=== PATIENT | male | born 1985 | race Caucasian/White ===

== ENCOUNTER 2017-07-26 19:04 | Emergency (ER) | payer OTHER ==
[~2017-07-26] VITALS: Ht 6458.1 cm; Wt 134.0 kg
[~2017-07-26 19:04] MED LIST: CYCL-394 PO; NORCO10T PO; SIN10C PO; ZOLP5TAB8 PO
[2017-07-26] MEDS ORDERED: ibuprofen 200mg tablet PO ONE (19:20)
[2017-07-26] MEDS ORDERED: IBUP-1984 PO (20:01)
[2017-07-26] MEDS ORDERED: TAM75C PO (20:01)
[2017-07-26 20:23] VITALS: BP 134/93
== END 2017-07-26 20:26 | disposition home or self-care (01) ==
LOC: ER 19:05
DX: R51 Headache (principal); R50.9 Fever, unspecified; M79.1 Myalgia; Z79.899 Other long term (current) drug therapy; Z98.890 Other specified postprocedural states
CPT/HCPCS: 99283

== ENCOUNTER 2019-04-15 12:58 | Day surgery (SDC) | payer OTHER ==
[2019-04-10 13:44] LABS: BASOPHILS % (AUTO) 0.4 % (0-1); EOSINOPHILS # (AUTO) 0.1 X10'3 (0-0.9); LYMPHOCYTES # (AUTO) 2.2 X10'3 (1.1-4.8); LYMPHOCYTES % (AUTO) 42.4 % (21-51); MEAN CORPUSCULAR HEMOGLOBIN 31.2 PG (27.0-31.0); MEAN CORPUSCULAR HGB CONC 34.1 g/dL (33.0-36.5); MEAN CORPUSCULAR VOLUME 91.4 FL (78-98); MEAN PLATELET VOLUME 8.7 FL (7.4-10.4); MONOCYTES # (AUTO) 0.4 X10'3 (0-0.9); MONOCYTES % (AUTO) 7.4 % (2-12); NEUTROPHILS # (AUTO) 2.5 X10'3 (1.8-7.7); NEUTROPHILS % (AUTO) 48.8 % (42-75); PRE OP HEMATOCRIT 43.1 % (42.0-52.0); PRE OP HEMOGLOBIN 14.7 g/dL (14.0-17.9); PRE OP PLATELET COUNT 178 X10'3 (140-440); RED BLOOD COUNT 4.72 X10'6 (4.70-6.10); RED CELL DISTRIBUTION WIDTH 12.9 % (11.5-14.5)
[2019-04-10 13:56] LABS: PRE OP PROTIME 10.2 SECONDS (9.0-12.0)
[2019-04-10 13:58] LABS: ALBUMIN/GLOBULIN RATIO 1.1 (1.1-1.5); ALKALINE PHOSPHATASE 65 IU/L (46-116); BLOOD UREA NITROGEN 11 MG/DL (7-18); BUN/CREATININE RATIO 9.9 (5.4-32.0); CALCIUM 8.9 MG/DL (8.5-10.1); CHLORIDE 104 MMOL/L (99-107); CREATININE 1.11 MG/DL (0.60-1.10); PRE OP ALT 38 U/L (30-65); PRE OP ANION GAP 6 (8-16); PRE OP AST 23 U/L (10-37); PRE OP BILIRUB, TOTAL 0.7 MG/DL (0.0-1.0); PRE OP GLUCOSE 89 MG/DL (70-104); PRE OP POTASSIUM 4.1 MMOL/L (3.4-5.1); PRE OP SODIUM 143 MMOL/L (135-145); TOTAL CARBON DIOXIDE 33.4 MMOL/L (24-32); TOTAL PROTEIN 7.7 G/DL (6.4-8.2); eGFR 75 ML/MIN
[2019-04-15] VITALS (8 sets, daily range): BP systolic 101–175; BP diastolic 60–97
[~2019-04-15] VITALS: Ht 193 cm; Wt 129.0 kg
[~2019-04-15 12:58] MED LIST changes: -CYCL-394 PO; -SIN10C PO; -ZOLP5TAB8 PO
[2019-04-15] MEDS ORDERED: ceFAZolin 1GM/D5W- ADD-VANTAGE 50 ML IV ONE (14:30)
[2019-04-15] MEDS ORDERED: vancomycin inj 1,500 MG in normal saline 300ml IV soln IV ONE (14:30)
[2019-04-15] MEDS ORDERED: famotidine 20mg tablet PO ONE (14:30)
[2019-04-15] MEDS ORDERED: cefazolin/dext.iso 2gm/50ml 50 ML IV ONE (14:30)
[2019-04-15] MEDS ORDERED: ringers solution, lacted 1,000 ML IV SCH ×2 (14:30→17:39)
[2019-04-15] MEDS ORDERED: sevoflurane 250ml liquid IH ONE (16:02)
[2019-04-15] MEDS ORDERED: dexamethasone sod phosphate 10mg/ml inj ONE (16:02)
[2019-04-15] MEDS ORDERED: midazolam 2 mg/2 ml injection ONE (16:05)
[2019-04-15] MEDS ORDERED: fentaNYL /PF 50mcg/ml 5ml ampule ONE (16:05)
[2019-04-15] MEDS ORDERED: propofol inj 20 ML IV ONE (16:06)
[2019-04-15] MEDS ORDERED: ROPIVAcaine 0.5% (5mg/ml) 30ml vial ONE (16:10)
[2019-04-15] MEDS ORDERED: ondansetron/PF 4mg/2ml inj IV PRN (17:40)
[2019-04-15] MEDS ORDERED: morphine 4 MG/ML inj SYRINge IV PRN ×2 (17:40)
[2019-04-15] MEDS ORDERED: proCHLORperazine 10 MG/2 ml inj IV PRN (17:40)
[2019-04-15] MEDS ORDERED: meperidine/PF 25mg/ml syringe IV PRN ×2 (17:40)
[2019-04-15] MEDS ORDERED: acetaminophen 1,000mg/100ml IV 100 ML IV ONE (18:14)
--- NOTE | 2019-04-15 18:25 | NUR ---
Received from OR via BED , accompanied by Anesthesiologist DR JOHN and report given by Anesthesiolgist. PATIENT WAKING UP, DENIES PAIN, V/S WNL, NEUROVASCULAR CHECKS INTACT, 20G PIV LUE , DRESSING TO LEFT KNEE CDI W/ COLD POWDER PACK AND IMMOBILIZER BRACE W/ SCD ON.
[2019-04-15] MEDS: meperidine/PF 25mg/ml syringe IV PRN ×3 (18:46→19:01)
[2019-04-15] MEDS ORDERED: HYDROcodone/acetaminophen 10/325mg tab PO PRN (18:50)
--- NOTE | 2019-04-15 19:15 | NUR ---
PATIENT A&OX4, DENIES PAIN, V/S WNL, NEUROVASCULAR CHECKS INTACT, 20G PIV D/C WITH NO COMPLICATIONS OBSERVED , DRESSING TO LEFT KNEE CDI W/ COLD POWDER PACK AND DARRION BRACE LOCKED IN EXTENTION , SCD OFF. I HAVE REVIEWED D/C INSTRUCTIONS WITH PATIENT AND FAMILY AND THEY HAVE VERBALIZED UNDERSTANDING. PATIENT D/C HOME WITH ALL BELONGINGS AND FAMILY GAVE TRANSPORT HOME.
== END 2019-04-15 19:15 | disposition home or self-care (01) ==
LOC: PAS 12:58
PROVIDERS: ATTEND Orthopaedic Surgery
DX: S83.272A Complex tear of lateral meniscus, current injury, left knee, initial encounter (principal); S83.512A Sprain of anterior cruciate ligament of left knee, initial encounter; M94.262 Chondromalacia, left knee; Z98.890 Other specified postprocedural states; F17.290 Nicotine dependence, other tobacco product, uncomplicated; Z72.89 Other problems related to lifestyle; X58.XXXA Exposure to other specified factors, initial encounter; Y93.89 Activity, other specified; Y92.89 Other specified places as the place of occurrence of the external cause; Y99.8 Other external cause status; Z79.899 Other long term (current) drug therapy; Z79.01 Long term (current) use of anticoagulants; G89.18 Other acute postprocedural pain
CPT/HCPCS: 29881; 29888; 36415; 64447; 80053; 82948; 85025; 85610; 85730; 93005; C1713; J0131; J0690; J1100; J2175; J2250; J2704; J3010; J3370; J7120; L1832; A4215; A4618; A6449; A7000; J2795

== ENCOUNTER 2019-12-11 12:00 | Emergency (ER) | payer OTHER ==
[~2019-12-11] VITALS: Ht 195.6 cm; Wt 135.4 kg
[2019-12-11 13:21] LABS: BASOPHILS % (AUTO) 0.3 % (0-1); EOSINOPHILS % (AUTO) 0.8 % (0-6); HEMATOCRIT 43.7 % (42.0-52.0); HEMOGLOBIN 14.8 g/dl (14.0-17.9); LYMPHOCYTES # (AUTO) 1.8 X10'3 (1.1-4.8); LYMPHOCYTES % (AUTO) 33.1 % (21-51); MEAN CORPUSCULAR HEMOGLOBIN 31.3 PG (27.0-31.0); MEAN CORPUSCULAR HGB CONC 33.9 g/dL (33.0-36.5); MEAN CORPUSCULAR VOLUME 92.5 FL (78-98); MEAN PLATELET VOLUME 9.1 FL (7.4-10.4); MONOCYTES # (AUTO) 0.3 X10'3 (0-0.9); MONOCYTES % (AUTO) 6.3 % (2-12); NEUTROPHILS # (AUTO) 3.2 X10'3 (1.8-7.7); NEUTROPHILS % (AUTO) 59.5 % (42-75); PLATELET COUNT 213 X10'3 (140-440); RED BLOOD COUNT 4.73 X10'6 (4.70-6.10); RED CELL DISTRIBUTION WIDTH 13.2 % (11.5-14.5); WHITE BLOOD COUNT 5.4 X10'3 (4.5-11.0)
[2019-12-11 13:33] LABS: PARTIAL THROMBOPLASTIN TIME 28 SECONDS (22-32)
[2019-12-11 13:36] LABS: ALANINE AMINOTRANSFERASE 31 U/L (12-78); ALBUMIN 4.1 G/DL (3.4-5.0); ALBUMIN/GLOBULIN RATIO 1.1 (1.1-1.5); ALKALINE PHOSPHATASE 67 IU/L (46-116); ANION GAP 4 (8-16); ASPARTATE AMINO TRANSFERASE 20 U/L (10-37); BILIRUBIN,TOTAL 0.8 MG/DL (0.1-1.0); BLOOD UREA NITROGEN 9 MG/DL (7-18); BUN/CREATININE RATIO 7.9 (5.4-32.0); CALCIUM 8.9 MG/DL (8.5-10.1); CHLORIDE 105 MMOL/L (99-107); CREATININE 1.14 MG/DL (0.60-1.10); GLUCOSE 93 MG/DL (70-104); POTASSIUM 4.2 MMOL/L (3.5-5.1); SODIUM 141 MMOL/L (135-145); TOTAL CARBON DIOXIDE 31.9 MMOL/L (24-32); TOTAL PROTEIN 7.8 G/DL (6.4-8.2); eGFR 73 ML/MIN
[2019-12-11] MEDS ORDERED: ketorolac trometh inj. 60 MG/2 ML VIAL IM ONE (14:45)
[2019-12-11 17:22] VITALS: BP 121/88
== END 2019-12-11 17:24 | disposition home or self-care (01) ==
LOC: ER 12:00
DX: R07.89 Other chest pain (principal); M54.2 Cervicalgia; G89.29 Other chronic pain; M54.9 Dorsalgia, unspecified; F17.210 Nicotine dependence, cigarettes, uncomplicated; Z72.89 Other problems related to lifestyle; Z79.899 Other long term (current) drug therapy
CPT/HCPCS: 36415; 71045; 80053; 84484; 85025; 85730; 93005; 96372; 99285; J1885